=== PATIENT | female | born 1935 | race Caucasian/White ===

== ENCOUNTER 2020-04-10 05:41 | Inpatient (IN) ==
--- NOTE | 2020-04-10 06:05 | ERNOTE ---
Lower Extremity HPI - General Lower Extremities Pain: hip: right - fracture Time Seen by Provider: 04/10/20 05:41 Source: EMS, halfway records, other - outside hospital report Exam Limitations: no limitations - Immun/Allergies/Home Medications Immunizations: IMMUNIZATION HX Immunizations Up to Date Yes Immunizations Comment UTD per [facility] Allergies/Adverse Reactions: Allergies Allergy/AdvReac Type Severity Reaction Status Date / Time Penicillins Allergy Verified 04/10/20 06:04 - History of Present Illness Narrative: Patient accepted here in transfer from [facility] by Dr. Huston. I milton e with Dr. Alfonso in the ER in [place]. Patient resides in a halfway was up to use the bathroom and fell striking her right hip and sustaining a fracture. Patient has dementia, COPD and hypertension Occurred: this morning Location of Incident: home - longterm Method of Injury: Reports: fell Reason for Fall: Reports: tripped Loss of Consciousness: Reports: no loss of consciousness Associated Symptoms: Reports: unable to bear weight Other Injuries: Reports: none Subsequent Symptoms: Denies: sensory loss, numbness Review of Systems - Narrative Narrative: ROS may be unreliable due to patient's dementia. - Review of Systems Constitutional: Absent: recent illness Respiratory: Absent: shortness of breath Cardiology: Absent: chest pain Musculoskeletal: Present: See HPI, joint pain Neurological: Absent: headache, dizziness/light-headedness Medical History (Last Reviewed 04/10/20 @ 06:12 by Julius Dudley DO) Chronic obstructive pulmonary disease, unspecified Hypothyroidism Other secondary hypertension Unspecified abnormalities of gait and mobility Unspecified dementia with behavioral disturbance Unspecified open-angle glaucoma, stage unspecified Unsteadiness on feet Visual hallucination Physical Exam - Physical Exam General Appearance: Present: wd/wn, alert, no apparent distress Head Exam: Present: no tenderness w palpation, contusions - Aged bruise over right eye. Absent: lacerations Eye Exam: Normal inspection: bilateral Ears, Nose, Throat: Present: normal ENT inspection Neck: Present: normal inspection, nontender, supple Respiratory: Present: no respiratory distress, normal breath sounds, chest nontender, lungs clear Cardiovascular/Chest: Present: regular rate, rhythm, no murmur Peripheral Pulses: N=norm/S=strong/W=weak/B=bound/A=absent: Dorsalis-pedis (R): Normal, Dorsalis-pedis (L): Normal Gastrointestinal/Abdominal: Present: normal bowel sounds, nontender, no ndistended, soft Extremity Exam: Present: normal except - - Tenderness to right hip., normal range of motion - Of other 3 extremities Neurological Exam: Present: alert - Confused per her dementia, no motor/sensory deficits Skin Exam: Present: warm/dry Lymphatic Exam: Present: no adenopathy Progress - Results and Orders Patient's Lab Results:: I have reviewed the patient's lab results. - From [facility] no significant abnormalities. - Vital Signs Patient's Vital Signs:: I have reviewed the patient's vital signs. Vital Signs: Vital Signs 04/10/20 05:46 04/10/20 05:55 Temperature 36.3 C Pulse Rate 75 72 Respiratory Rate 18 Blood Pressure 176/89 H O2 Sat by Pulse Oximetry 94 - X-Ray X-Ray #1 X-Ray: hip Interpretation: Reviewed by me X-ray Comments: I reviewed the x-rays from [facility] which showed a minimally displaced right hip fracture. - Progress/Reassessment Chief Complaint: Hip Pain/Injury Progress Note-Subjective: 04/10/20 06:[address] Smith and he requests admission to medicine and consult him. I spoke with Dr. Ludwig she agrees with admission and the patient could go to surgery today. Departure Clinical Impression: Closed right hip fracture Qualifiers: Encounter type: initial encounter Qualified Code(s): S72.001A - Fracture of unspecified part of neck of right femur, initial encounter for closed fracture - Departure Disposition: Still a patient Condition: Good
[2020-04-10] MEDS ORDERED: ONDANSETRON HCL/PF 2 MG/ML VIAL IV ONE (06:43)
[2020-04-10] MEDS ORDERED: MORPHINE SULFATE 2 MG/ML DISP.SYRIN IV ONE (06:43)
[2020-04-10] MEDS ORDERED: ACETAMINOPHEN 325 MG TABLET PO PRN ×2 (09:34→09:35)
[2020-04-10] MEDS ORDERED: HYDROcodone/ACETAMINOPHEN 1 EACH TABLET PO PRN (09:35)
[2020-04-10] MEDS ORDERED: amLODIPine BESYLATE 5 MG TABLET PO ONE (09:37)
[2020-04-10] MEDS ORDERED: NORMAL SALINE 1,000 ML IV ONE (09:40)
[2020-04-10] MEDS ORDERED: QUEtiapine FUMARATE 25 MG TABLET PO SCH (09:45)
[2020-04-10] MEDS ORDERED: LEVOTHYROXINE SODIUM 88 MCG TABLET PO SCH (09:45)
[2020-04-10] MEDS ORDERED: MORPHINE SULFATE 4 MG/ML SYRG IV PRN ×2 (09:50→17:14)
--- NOTE | 2020-04-10 09:57 | HP ---
Chief Complaint - Chief Complaint Date of Service: 04/10/20 Time of Service: 09:45 Chief Complaint: I have right hip pain from a fall History of Present Illness: 85-year-old female with past medical history of hypertension, Willie Bonnet syndrome, dementia, open angle glaucoma, and COPD was brought to the ER from [facility] for a right hip fracture that the patient sustained when she fell last night while attempting to go to the bathroom. Patient is a snf resident who normally ambulates unassisted it is not clear how she fell but she was discovered on the floor laying on her right side. Patient suffers from dementia and has obvious cognitive deficits so it is difficult to get a clear history of how the fall occurred. The patient underwent labs and evaluation in the ER [facility] and results were sent to our facility and they show adequate hemoglobin levels and balance electrolytes and were negative for any other concerns. 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, unspecified Hypothyroidism Other secondary hypertension Unspecified abnormalities of gait and mobility Unspecified dementia with behavioral disturbance Unspecified open-angle glaucoma, stage unspecified Unsteadiness on feet Visual hallucination Surgical History: Surgical History (Last Reviewed 04/10/20 @ 08:21 by Ravi Garcia RN) Arthropathy of left hip Peds Patient Hx - Developmental: No Pertinent Hx Peds Patient Hx - Medical: No Pertinent Hx Peds Patient Hx - Cardiac/Respiratory: No Pertinent Hx Peds Patient Hx - Surgical: No Surgical History Patient History - Cancer: No Hx of Cancer Review Of Systems (GEN) - Review of Systems Generalized/Overall Review: Present: No Symptoms Reported EENTM: Present: No Symptoms Reported Respiratory: Present: No Symptoms Reported Cardiac: Present: No Symptoms Reported Abdominal: Present: No Symptoms Reported Genitourinary: Present: No Symptoms Reported Musculoskeletal: Present: Joint Pain - Right hip pain Neurological: Present: Pre-existing Deficit Skin: Present: No Symptoms Reported Endocrine: Present: No Symptoms Reported Immunizations: IMMUNIZATION HX Immunizations Up to Date Yes Immunizations Comment UTD per [facility] Allergies/Adverse Reactions: Allergies Allergy/AdvReac Type Severity Reaction Status Date / Time Penicillins Allergy Verified 04/10/20 08:21 Home Medications: HOME MEDICATIONS Acetaminophen [Tylenol] 650 mg PO Q4H PRN 04/10/20 [Last Taken Unknown] Donepezil HCl [Aricept] 10 mg PO HS 04/10/20 [Last Taken Unknown] Dorzolamide HCl/Timolol Maleat [Cosopt Eye Drops] 1 drop EACHEYE BID 04/10/20 [Last Taken Unknown] Fluticasone/Salmeterol [Advair Hfa 45-21 Mcg Inhaler] 2 puff INHALATION BID 04/10/20 [Last Taken Unknown] HYDROcodone/ACETAMINOPHEN [Hydrocodon-Acetaminophen 5-325] 1 ea PO Q4H PRN 04/10/20 [Last Taken Unknown] Levothyroxine Sodium [Synthroid] 88 mcg PO DAILY 04/10/20 [Last Taken Unknown] Loperamide HCl [Imodium A-D] 2 mg PO Q8H PRN 04/10/20 [Last Taken Unknown] QUEtiapine FUMARATE [Seroquel] 25 mg PO MOTUWETHFRSA 04/10/20 [Last Taken Unknown] Thiamine HCl [B-1] 100 mg PO DAILY 04/10/20 [Last Taken Unknown] Exam - Exam Vital Signs: Vital Signs - Last Taken Temp 37.2 C 04/10/20 08:10 Pulse 78 04/10/20 08:10 Resp 20 04/10/20 08:10 BP 176/87 H 04/10/20 08:10 Pulse Ox 92 L 04/10/20 08:10 Constitutional: Present: Alert, Cooperative, Well developed, Well nourished, No distress, Elderly Eye Exam: bilateral eye: normal inspection, PERRL, EOMI Neck: Present: non-tender, full range of motion, supple, normal inspection, trachea midline Back Exam: Present: normal inspection, no CVA tenderness, no vertebral tenderness Breasts: Present: Exam deferred Respiratory: Present: chest non-tender, lungs clear, normal breath sounds, no respiratory distress, no accessory muscle use Cardiovascular/Chest: Present: normal peripheral pulses, regular rate, rhythm, no chest tenderness, no edema, no gallop, no murmur, no rub Peripheral Pulses: carotid (R): 3+, carotid (L): 3+, femoral (R): 3+, femoral (L): 3+, dorsalis-pedis (R): 3+, dorsalis-pedis (L): 3+ Abdomen: Present: Normal bowel sounds, soft, nontender, nondistended, no rebound tenderness, no hepatospenomegaly, no masses /Rectal: Present: Exam deferred Extremity: Present: no pedal edema, no calf tenderness, normal capillary refill, other - Right lower extremity externally rotated and shortened, pulses and sensation are intact Skin Exam: Present: normal color, warm/dry, no cyanosis Lymphatic: Present: no adenopathy Neurologic: Present: exhibit specialist II-XII nml as tested, no motor/sensory deficits, alert, disoriented x 3 Appearance: Present: appropriate appearance, neat, impaired recent memory, impaired remote memory Eye contact: Present: cooperative, good eye contact, normal speech Thoughts: Present: no apparent hallucination, incoherent Assessment/Plan - Narrative Narrative: After evaluating the patient and reviewing the records she was cleared for her surgery. We will follow-up after the procedure. - Assessment/Plan (1) Closed right hip fracture Problem: Acute Qualifiers: Encounter type: initial encounter Qualified Code(s): S72.001A - Fracture of unspecified part of neck of right femur, initial encounter for closed fracture (2) HTN (hypertension) Problem: Chronic (3) Dementia Problem: Chronic
--- NOTE | 2020-04-10 11:33 | CONS ---
- Reason for consultation (1) Closed right hip fracture Date of Service: 04/10/20 HPI - General Date of Service: 04/10/20 Narrative: She has significant dementia was reportedly walking last night at her care facility when she fell. It is reported that patient suffers from significant sundowning per her family. This caused the patient to get up and walk in a high risk for fall. Patient otherwise has significant mental impairment and is a poor historian. She is otherwise mostly healthy, she reports her pain at 2/10. Worse with movement better with rest. Source: patient, RN/MD - History of Present Illness Allergies/Adverse Reactions: Allergies Penicillins Allergy (Verified 04/10/20 08:21) Home Medications: Home Medications Medication Instructions Recorded Last Taken Acetaminophen [Tylenol] 650 mg PO Q4H PRN 04/10/20 Unknown Donepezil HCl [Aricept] 10 mg PO HS 04/10/20 Unknown Dorzolamide HCl/Timolol Maleat 1 drop EACHEYE BID 04/10/20 Unknown [Cosopt Eye Drops] Fluticasone/Salmeterol [Advair Hfa 2 puff INHALATION BID 04/10/20 Unknown 45-21 Mcg Inhaler] HYDROcodone/ACETAMINOPHEN 1 ea PO Q4H PRN 04/10/20 Unknown [Hydrocodon-Acetaminophen 5-325] Levothyroxine Sodium [Synthroid] 88 mcg PO DAILY 04/10/20 Unknown Loperamide HCl [Imodium A-D] 2 mg PO Q8H PRN 04/10/20 Unknown QUEtiapine FUMARATE [Seroquel] 25 mg PO MOTUWETHFRSA 04/10/20 Unknown Thiamine HCl [B-1] 100 mg PO DAILY 04/10/20 Unknown Medications - Medications Current Medications: Current Medications Sodium Chloride (Sodium Chloride 0.9%) 1,000 mls @ 125 mls/hr IV .Q8H ONE Stop: 04/10/20 17:39 Last Admin: 04/10/20 10:09 Dose: 125 mls/hr Documented by: Morphine Sulfate (Morphine Sulfate) 1 mg IV Q2H PRN PRN Reason: Severe Pain (pain scale 7-10) Stop: 05/10/20 09:51 Last Admin: 04/10/20 10:10 Dose: 1 mg Documented by: Physical Examination - Exam Vital Signs: Vital Signs - Last Taken Temp 37.2 C 04/10/20 08:10 Pulse 78 04/10/20 10:09 Resp 20 04/10/20 08:10 BP 176/87 H 04/10/20 10:09 Pulse Ox 93 04/10/20 10:54 O2 Oxygen Delivery Method Nasal Cannula Constitutional: Present: No distress Extremity: Present: other - RLE--> sensation intact light touch, 5/5 plantarflexion/dorsiflexion ankle, no obvious wounds or deformity, distal capillary refill, tenderness palpation of right hip - Assessments/Findings (1) Closed right hip fracture Problem: Acute Qualifiers: Encounter type: initial encounter Qualified Code(s): S72.001A - Fracture of unspecified part of neck of right femur, initial encounter for closed fracture Plan - Plan Plan: -85 y/o female presents status post a fall, significant mental impairment and dementia as well as hallucinations. Discussed with patient's daughter proceeding with conservative or surgical intervention as well as indications and risk first benefits including not limited to continued pain, infection, bleeding, malunion versus nonunion fracture healing, inherent risk of surgery, cardiac and stroke risk, DVT risk. POA patient's daughter expressed understanding wish to proceed with surgical intervention. Plan for Dr. Rashid to proceed with cephalo-medullary nailing of right intertrochanteric femur fracture on 04/10/2020. Consent is been obtained all questions were answered. Patient will continue the hospital for monitoring postoperatively. Medicine provider is seen patient and agrees to proceed with surgical intervention.
[2020-04-10] MEDS: ALBUTEROL SULFATE/IPRATROPIUM 3 ML NEBU IH SCH ×2 (12:30→18:05)
[2020-04-10] MEDS ORDERED: MORPHINE SULFATE 2 MG/ML DISP.SYRIN IV PRN (13:30)
[2020-04-10] MEDS: RINGER'S SOLUTION,LACTATED 1,000 ML IV PRN ×3 (15:15→18:57)
[2020-04-10] MEDS ORDERED: PROPOFOL VIAL IV ONE (15:26)
[2020-04-10] MEDS ORDERED: NORMAL SALINE 20 ML VIAL ONE (15:26)
[2020-04-10] MEDS ORDERED: BUPIVACAINE HCL/PF 10 ML VIAL ONE (15:26)
--- NOTE | 2020-04-10 15:29 | ANES ---
Anesthesia Pre Procedure Eval Vitals/Labs: Last Vital Signs Temp 36.9 C 04/10/20 13:21 Pulse 79 04/10/20 13:21 Resp 18 04/10/20 13:21 BP 164/90 H 04/10/20 13:21 Pulse Ox 93 04/10/20 13:21 HOME MEDICATIONS Acetaminophen [Tylenol] 650 mg PO Q4H PRN 04/10/20 [Last Taken Unknown] Donepezil HCl [Aricept] 10 mg PO HS 04/10/20 [Last Taken Unknown] Dorzolamide HCl/Timolol Maleat [Cosopt Eye Drops] 1 drop EACHEYE BID 04/10/20 [Last Taken Unknown] Fluticasone/Salmeterol [Advair Hfa 45-21 Mcg Inhaler] 2 puff INHALATION BID 04/10/20 [Last Taken Unknown] HYDROcodone/ACETAMINOPHEN [Hydrocodon-Acetaminophen 5-325] 1 ea PO Q4H PRN 04/10/20 [Last Taken Unknown] Levothyroxine Sodium [Synthroid] 88 mcg PO DAILY 04/10/20 [Last Taken Unknown] Loperamide HCl [Imodium A-D] 2 mg PO Q8H PRN 04/10/20 [Last Taken Unknown] QUEtiapine FUMARATE [Seroquel] 25 mg PO MOTUWETHFRSA 04/10/20 [Last Taken Unknown] Thiamine HCl [B-1] 100 mg PO DAILY 04/10/20 [Last Taken Unknown] Allergies/Adverse Reactions: Allergies Allergy/AdvReac Type Severity Reaction Status Date / Time Penicillins Allergy Verified 04/10/20 08:21 - Planned Procedure Planned Procedure: R HIP FX Medication List Reviewed:: Yes Allergies Verified: Yes Medical History (Last Reviewed 04/10/20 @ 15:28 by Joe Taylor CRNA) Willie Bonnet syndrome Chronic obstructive pulmonary disease, unspecified Hypothyroidism Other secondary hypertension Unspecified abnormalities of gait and mobility Unspecified dementia with behavioral disturbance Unspecified open-angle glaucoma, stage unspecified Unsteadiness on feet Visual hallucination Surgical History (Last Reviewed 04/10/20 @ 15:28 by Joe Taylor CRNA) Arthropathy of left hip - Family Anesthesia History Family History:: no untoward family reactions to anesthesia - Airway/Neck/Teeth Within Normal Limits:: Yes Teeth Condition: intact Neck Exam: full range of motion Mallampatti Score: 2 Thyromental (T-M) distance: > 6 cm Mandibulo Hyoid distance: > 3 cm - Respiratory Respiratory History: COPD Respiratory Physical: lungs clear Smoking Status: Never smoker Sleep Apnea currently treated: No Sleep Apnea by current assessment: No - Cardiovascular Cardiac History: hypertension Tolerate Activity: Poor Heart Sounds: S1 & S2, Regular - Gastrointestinal NPO since: 0800 - Anesthesia Assessment and Plan ASA Class: PS, III Anesthesia Type Plan: Spinal Planned difficult intubation/equipment available: No
[2020-04-10] MEDS ORDERED: MAGNESIUM HYDROXIDE 30 ML UDC PO PRN (17:14)
[2020-04-10] MEDS ORDERED: MAG HYDROX/ALUMINUM HYD/SIMETH 30 ML UDC PO PRN (17:14)
--- NOTE | 2020-04-10 17:14 | OR ---
Operative Report - Dictated Report Narrative: Date: 04/10/2020 Surgeon: Albaro Rashid M.D. Outbound Sales Representative: Harlan Ding PA-C (provided an essential set of skilled educated handset assisted with transfer, positioning, prepping, draping, placement of instruments, insertion of implants, irrigation, closure wounds, and placement of dressings all which could not be performed by the available surgical crew) Preoperative diagnosis: Closed right intertrochanteric femur fracture Postoperative diagnosis: Closed right intertrochanteric femur fracture Operations and procedures: 1. Closed reduction, cephalo-medullary fixation closed right intertrochanteric femur fracture 2. Intraoperative interpretation of radiographs Anesthesia: Spinal Specimens: None Estimated blood loss: 50 Milliliters Retained implants: [employer] Trigen InterTAN 130 degree size 11.5 mm by 18 centimeter nail with 95 millimeter lag screw and 90 millimeter compression screw, with distal locking screw Complications: None Indications for procedure: Mrs. No is an 85-year-old female who had a ground-level fall who injured the right leg after ground-level fall. They were admitted to the hospital after being evaluated in the emergency department. Once the medical provider felt that they were stable for surgical treatment, the risks and benefits alternatives were discussed. The risks of , blood clots, bleeding, infection, nerve/tendon/blood vessel injury, malunion, nonunion, failure of implants, painful implants, arthrosis, and need for additional procedures were discussed. The extremity was marked and consent was obtained on the floor. Procedure: After marking the operative extremity on the floor, the patient was taken to the operating room. A timeout was performed. IV antibiotics consisting of Ancef were administered. A spinal anesthetic was induced by anesthesia, and the patient was then placed onto a fracture table with a well-padded perineal post. The nonoperative leg was placed in a well-padded traction boot in slight extension without any traction with an SCD on the leg. The operative leg was placed in a well-padded traction boot. Longitudinal traction, internal rotation, and flexion were utilized in order to reduce the fracture. Preliminary images were attained utilizing C-arm in both the AP and lateral views. This confirmed that we had obtained adequate visualization of the fracture as well as reduction. Next the hip was then prepped and draped in a standard sterile fashion. Next the guidewire was placed percutaneously proximal to the greater trochanter to rosey a starting point at the tip of the greater trochanter centered on the lateral view. This was passed down to the level below the lesser trochanter. A scalpel was utilized in order to dissect down to the greater trochanter in order to place the soft tissue protector down to bone. The entry drill was then placed down the proximal femur to the level of the lesser trochanter. The proper size nail was then selected and impacted into place. The outrigger was utilized in order to confirm the appropriate depth of the nail. Using the alignment device on the outrigger, an incision was made over the lateral femur. Sharp dissection was carried through the iliotibial band down to the proximal femur. The guidewire was placed into the femoral head in a center- center position on AP and lateral views. The tip-apex distance of less than 25 mm combined was obtained. Once we felt that we had placed a guidewire in the a ppropriate position, it was measured. Next the compression screw site was drilled through the lateral femoral cortex. This was then drilled down to the appropriate depth, again confirming that we are within the confines the bone. The derotational bar was then placed and the lag screw was drilled. The lag screw was then secured in place seating fully ensuring that we were within the confines of the bone. The compression screw was then inserted allowing for compression while releasing the traction on the leg. Using C-arm this was visualized to allow for compression across the fracture site. Once is felt that we had adequately stabilized the intertrochanteric fracture, the distal interlocking screw was placed in a dynamic position. It was confirmed to be the appropriate length and within the nail on both AP and lateral views. The nail was secured allowing for controlled compression and the outrigger was removed. The wounds were then thoroughly irrigated. Final images were obtai kristina. The hip was placed through range of motion and showed no crepitance. The deep fascia was closed with 0 Vicryl, the subcutaneous tissue with 3-0 Vicryl, and the skin was closed with michael. Sterile dressings of Xeroform, 4 x 4, and tape were applied. All sponge, sharp, and instrument counts were correct prior to closing the wounds. The patient was then awoken and transferred to the posta nesthesia care unit in stable condition.
--- NOTE | 2020-04-10 17:40 | ANES ---
Post Anesthesia Discharge - Transfer of Care Transfer of Care handoff given to nurse: Yes - Discharge from PACU Discharge from PACU when meets criteria: Yes
--- NOTE | 2020-04-10 17:40 | ANES ---
Post Anesthesia Assessment - Vital Signs Vitals: Last Vital Signs Temp 36.9 C 04/10/20 13:21 Pulse 79 04/10/20 13:21 Resp 18 04/10/20 13:21 BP 164/90 H 04/10/20 13:21 Pulse Ox 93 04/10/20 13:21 Airway Patency: Normal - Mental Status Level Of Consciousness: Awake - Pain Level Pain Score: 0 - N/V Assessment Nausea/Vomiting Presence: None Dehydration:: No
[2020-04-10] MEDS: ACETAMINOPHEN 500 MG TABLET PO PRN (19:38)
[2020-04-10] MEDS: WARFARIN SODIUM 5 MG TABLET PO SCH (19:39)
[2020-04-10] MEDS: ceFAZolin SODIUM 1 GM in DEXTROSE 5 % IN WATER 100 ML IV SCH ×2 (19:54)
[2020-04-10] MEDS: TIMOLOL MALEATE/DORZOLAM HCL 100 DROP BTL EACHEYE SCH (20:25)
[2020-04-10] MEDS: QUEtiapine FUMARATE 25 MG TABLET PO SCH (20:30)
[2020-04-10] MEDS: PANTOPRAZOLE SODIUM 40 MG TABLET.EC PO SCH (20:30)
[2020-04-10] MEDS: SENNOSIDES/DOCUSATE SODIUM 1 TAB TABLET PO SCH (20:30)
[2020-04-10] MEDS: DONEPEZIL HCL 10 MG TABLET PO SCH (20:30)
[2020-04-11] MEDS: ceFAZolin SODIUM 1 GM in DEXTROSE 5 % IN WATER 100 ML IV SCH ×4 (01:24→07:25)
[2020-04-11] MEDS: RINGER'S SOLUTION,LACTATED 1,000 ML IV PRN (03:41)
[2020-04-11] MEDS: ACETAMINOPHEN 500 MG TABLET PO PRN ×3 (03:46→23:02)
[2020-04-11] MEDS ORDERED: ceFAZolin SODIUM 1 GM VIAL IV PRN (06:00)
[2020-04-11] MEDS: ALBUTEROL SULFATE/IPRATROPIUM 3 ML NEBU IH SCH ×2 (06:09→18:14)
[2020-04-11 06:33] LABS: Anion Gap 7.7 mmol/L (6.8-13.8); BUN/Creatinine Ratio 22.6 (9.0-21.6); Calcium * 7.7 mg/dL (7.9-10.9); Estimated Creat Clear 45.8; Potassium 3.7 mmol/L (3.4-4.6)
[2020-04-11 06:35] LABS: Hematocrit 33.7 % (37.0-47.0); Mean Cell Volume 101.2 fl (78-100); Mean Corpuscular Hgb Conc 32.6 g/dl (32-36); Mean Platelet Volume 10.2 fl (8-12.5); Platelet Count 192 K/mm3 (150-450); Red Blood Count 3.33 M/mm3 (4.2-5.4); Red Cell Distribution Width 13.3 % (11.5-14.0); White Blood Count 8.6 K/mm3 (4.0-10.5)
[2020-04-11 06:49] LABS: Prothrombin Time (Patient) 11.6 Seconds (9.1-10.7)
[2020-04-11 07:05] LABS: INR 1.18 INR (0.92-1.08)
[2020-04-11] MEDS: DOCUSATE SODIUM 100 MG CAPSULE PO SCH ×2 (07:45→08:37)
[2020-04-11] MEDS: LEVOTHYROXINE SODIUM 88 MCG TABLET PO SCH (07:45)
[2020-04-11] MEDS: THIAMINE HCL 100 MG TABLET PO SCH ×2 (07:45→08:38)
[2020-04-11] MEDS: PANTOPRAZOLE SODIUM 40 MG TABLET.EC PO SCH ×2 (07:45→20:47)
--- NOTE | 2020-04-11 07:49 | PN ---
Subjective - Date and Time Seen Date: 04/11/20 Time: 07:46 Subjective Narrative: Subjective: Reports no concerns although she is confused chronically she is resting in bed. Pain is well-controlled. Physical exam: Alert and not oriented to person, place and time Right lower extremity: Palpable dorsalis pedis pulse. Sensation grossly intact to light touch. Dressings clean and dry. Able to flex and extend ankle and toes. No excessive drainage. Calf and thigh are soft. Assessment: Postop day 1 status post right hip cephalo-medullary nail fixation for intertrochanteric femur fracture. Plan: Continue with physical and occupational therapy weightbearing as tolerated. Continue with anticoagulation-she will need 6 weeks of DVT prophylaxis. 24 hours postoperative prophylactic antibiotics. Pain control with goal to rely on oral medications. Continue bowel regimen. Will need 6 weeks with walker or assitive device to protect joint while ambulating during the recovery process. Discharge planning -she is okay for transfer to nursing facility once medically stable. Discontinue Proctor catheter. Objective - Vitals Vitals: Last Vital Signs Temp 36.2 C 04/11/20 03:38 Pulse 70 04/11/20 06:15 Resp 18 04/11/20 06:15 BP 137/74 04/11/20 05:51 Pulse Ox 98 04/11/20 06:09 - Abnormal Lab Findings Abnormal Lab Findings: Abnormal Lab Results 04/11/20 04/11/20 04/11/20 Range/Units 06:24 06:24 06:24 RBC 3.33 L (4.2-5.4) M/mm3 Hgb 11.0 L (12.5-16.0) gm/dL Hct 33.7 L (37.0-47.0) % MCV 101.2 H (78-100) fl MCH 33.0 H (27-31) pg PT 11.6 H (9.1-10.7) Seconds INR (Anticoag Therapy) 1.18 H (0.92-1.08) INR Chloride 107 H (97-106) mmol/L BUN/Creatinine Ratio 22.6 H (9.0-21.6) Calcium 7.7 L (7.9-10.9) mg/dL Cauti Physician Documentation - Urinary Catheter Management Urethral (Proctor) Date of Insertion: 04/10/20 Time of Insertion: 06:27 Assessment/Plan - Problems/Diagnosis (1) Closed right hip fracture Problem: Acute Qualifiers: Encounter type: subsequent encounter Fracture healing: with routine healing Qualified Code(s): S72.001D - Fracture of unspecified part of neck of right femur, subsequent encounter for closed fracture with routine healing
--- NOTE | 2020-04-11 10:21 | PN ---
Subjective - Date and Time Seen Date: 04/11/20 Time: 10:07 Subjective Narrative: Patient has dementia and is disoriented Objective Objective Narrative: 85-year-old female status post right hip closed reduction cephalo- medullary nail fixation postop day 1 was evaluated at bedside was found to be afebrile and in no acute distress. Patient tolerated the procedure without any adverse events. At the moment she appears to be comfortable but has her usual cognitive deficits, therefore questioning during this morning was not very fruitful. She was evaluated by the orthopedic surgeon this morning who reports a routine postop progress and ordered for the patient to start occupational and physical therapy. He also allowed full weightbearing. Patient was also started on Coumadin for postop DVT prophylaxis and will be followed by daily INRs. Labs this morning demonstrated only mild postop anemia so we will just monitor this for now. Repeat CBC was ordered to be done in 2 days. Patient will stay in the hospital throughout the weekend and we will work on discharging back to her care home for rehab. In the meantime COVID-19 screening has been ordered before we can return the patient to the care home. - Review of Systems Generalized/Overall Review: Reports: No Symptoms Reported EENTM: Reports: No Symptoms Reported Respiratory: Reports: No Symptoms Reported Cardiac: Reports: No Symptoms Reported Abdominal: Reports: No Symptoms Reported Genitourinary Symptoms: Reports: No Symptoms Reported Musculoskeletal Complaints: Reports: Joint Pain Neurological: Reports: No Symptoms Reported Skin: Reports: No Symptoms Reported Endocrine: Reports: No Symptoms Reported - Vitals Vitals: Last Vital Signs Temp 37.1 C 04/11/20 07:38 Pulse 70 04/11/20 07:38 Resp 18 04/11/20 07:38 BP 143/81 04/11/20 07:38 Pulse Ox 96 04/11/20 08:38 - Abnormal Lab Findings Abnormal Lab Findings: Abnormal Lab Results 04/11/20 04/11/20 04/11/20 Range/Units 06:24 06:24 06:24 RBC 3.33 L (4.2-5.4) M/mm3 Hgb 11.0 L (12.5-16.0) gm/dL Hct 33.7 L (37.0-47.0) % MCV 101.2 H (78-100) fl MCH 33.0 H (27-31) pg PT 11.6 H (9.1-10.7) Seconds INR (Anticoag Therapy) 1.18 H (0.92-1.08) INR Chloride 107 H (97-106) mmol/L BUN/Creatinine Ratio 22.6 H (9.0-21.6) Calcium 7.7 L (7.9-10.9) mg/dL - Exam Constitutional: Present: Alert, Cooperative, Well developed, Well nourished, No distress, Elderly ENT Exam: Present: normal ENT inspection, hearing grossly normal, moist mucous membranes Neck: Present: non-tender, full range of motion, supple, normal inspection, trachea midline Breasts: Present: Exam deferred Respiratory: Present: chest non-tender, lungs clear, normal breath sounds, no respiratory distress, no accessory muscle use Cardiovascular/Chest: Present: normal peripheral pulses, regular rate, rhythm, no chest tenderness, no edema, no gallop, no JVD, no murmur, no rub Abdomen: Present: Normal bowel sounds, soft, nontender, nondistended, no rebound tenderness, no hepatospenomegaly, no masses /Rectal: Present: Exam deferred Extremity: Present: no pedal edema, no calf tenderness, normal capillary refill, pelvis stable, other - Right hip covered by dry clean bandage there is no signs of infection or bleeding. Skin Exam: Present: normal color, warm/dry, no cyanosis Lymphatic: Present: no adenopathy Neurologic: Present: normal mood/affect, disoriented x 3 Appearance: Present: appropriate appearance Eye contact: Present: cooperative, good eye contact Thoughts: Present: no apparent hallucination Cauti Physician Documentation - Urinary Catheter Management Urethral (Proctor) Urethral Indwelling: No Date of Insertion: 04/10/20 Time of Insertion: 06:27 Date of Removal: 04/11/20 Time of Removal: 10:00 Assessment/Plan Plan Narrative: Follow-up CBC has been ordered to evaluate postop hemoglobin levels and WBCs. In the meantime patient will undergo an hospital OT and PT and will start working on discharging back to the facility hopefully sometime next week. - Problems/Diagnosis (1) Closed right hip fracture Problem: Resolved Qualifiers: Encounter type: subsequent encounter Fracture healing: with routine healing Qualified Code(s): S72.001D - Fracture of unspecified part of neck of right femur, subsequent encounter for closed fracture with routine healing (2) HTN (hypertension) Problem: Chronic (3) Dementia Problem: Chronic (4) Status post-operative repair of hip fracture Problem: Acute (5) correction resident Problem: Chronic
[2020-04-11] MEDS: TIMOLOL MALEATE/DORZOLAM HCL 100 DROP BTL EACHEYE SCH ×2 (14:10→20:48)
[2020-04-11] MEDS: WARFARIN SODIUM 5 MG TABLET PO SCH (17:51)
[2020-04-11] MEDS: SENNOSIDES/DOCUSATE SODIUM 1 TAB TABLET PO SCH (20:47)
[2020-04-11] MEDS: QUEtiapine FUMARATE 25 MG TABLET PO SCH (20:47)
[2020-04-11] MEDS: DONEPEZIL HCL 10 MG TABLET PO SCH (20:47)
[2020-04-12] MEDS: ALBUTEROL SULFATE/IPRATROPIUM 3 ML NEBU IH SCH ×3 (06:01→18:10)
[2020-04-12] MEDS: PANTOPRAZOLE SODIUM 40 MG TABLET.EC PO SCH ×2 (06:56→20:06)
[2020-04-12] MEDS: LEVOTHYROXINE SODIUM 88 MCG TABLET PO SCH (06:56)
[2020-04-12 07:22] LABS: Prothrombin Time (Patient) 14.6 Seconds (9.1-10.7)
[2020-04-12 07:23] LABS: INR 1.5 INR (0.92-1.08)
[2020-04-12] MEDS: THIAMINE HCL 100 MG TABLET PO SCH (08:44)
[2020-04-12] MEDS: TIMOLOL MALEATE/DORZOLAM HCL 100 DROP BTL EACHEYE SCH ×2 (08:44→20:05)
[2020-04-12] MEDS: DOCUSATE SODIUM 100 MG CAPSULE PO SCH (08:44)
[2020-04-12] MEDS: ACETAMINOPHEN 500 MG TABLET PO PRN ×2 (11:23→18:32)
--- NOTE | 2020-04-12 13:27 | PN ---
Subjective - Date and Time Seen Date: 04/12/20 Time: 13:26 Subjective Narrative: Patient resting comfortably in her chair when I entered the room, but she became slightly agitated as we started to talk. Patient alert and oriented x1 currently, very tangential speech this morning. Patient slightly tearful but denies pain. Patient's vital signs are stable she is afebrile. No acute events overnight. Objective - Review of Systems Generalized/Overall Review: Denies: Chills, Fever EENTM: Reports: No Symptoms Reported Respiratory: Reports: No Symptoms Reported Cardiac: Denies: Chest Pain Abdominal: Denies: Vomiting, Abdominal Pain Musculoskeletal Complaints: Reports: Joint Pain - Vitals Vitals: Last Vital Signs Temp 37.7 C 04/12/20 12:00 Pulse 70 04/12/20 12:00 Resp 20 04/12/20 12:00 BP 140/82 04/12/20 12:00 Pulse Ox 92 L 04/12/20 12:00 - Abnormal Lab Findings Abnormal Lab Findings: Abnormal Lab Results 04/12/20 Range/Units 07:08 PT 14.6 H (9.1-10.7) Seconds INR (Anticoag Therapy) 1.50 H (0.92-1.08) INR - Exam Constitutional: Present: Alert, Mild distress, Elderly. Absent: Oriented x3 - x2 ENT Exam: Present: hard of hearing - Right Respiratory: Present: lungs clear, normal breath sounds Cardiovascular/Chest: Present: regular rate, rhythm, no murmur Abdomen: Present: Normal bowel sounds, soft, nontender Skin Exam: Present: normal color, warm/dry, other - Bandage over incision clean and dry Appearance: Present: appropriate appearance, impaired insight, impaired recent memory Thoughts: Present: no apparent hallucination Cauti Physician Documentation - Urinary Catheter Management Urethral (Proctor) Urethral Indwelling: No Date of Insertion: 04/10/20 Time of Insertion: 06:27 Date of Removal: 04/11/20 Time of Removal: 10:00 Assessment/Plan Plan Narrative: Postop day 2-status post right hip cephalo-medullary nail fixation for intertrochanteric femur fracture. Patient's vital signs are stable patient is afebrile. No acute events overnight. Pain appears to be well controlled Patient slightly agitated but easily distractible. Patient denies pain. Patient currently wanted to know who still her glasses. Repeat hemogram in the morning. Patient currently on Coumadin for anticoagulation. Repeat INR in the morning Patient's dementia appears to be stable per report Nurse will call questions or concerns. - Problems/Diagnosis (1) Closed right hip fracture Problem: Resolved Qualifiers: Encounter type: subsequent encounter Fracture healing: with routine healing Qualified Code(s): S72.001D - Fracture of unspecified part of neck of right femur, subsequent encounter for closed fracture with routine healing (2) Status post-operative repair of hip fracture Problem: Acute (3) Dementia Problem: Chronic (4) HTN (hypertension) Problem: Chronic
[2020-04-12] MEDS: WARFARIN SODIUM 5 MG TABLET PO SCH (17:03)
[2020-04-12] MEDS: SENNOSIDES/DOCUSATE SODIUM 1 TAB TABLET PO SCH (20:04)
[2020-04-12] MEDS: DONEPEZIL HCL 10 MG TABLET PO SCH (20:05)
[2020-04-12] MEDS: QUEtiapine FUMARATE 25 MG TABLET PO SCH (20:06)
[2020-04-13] MEDS: ACETAMINOPHEN 500 MG TABLET PO PRN ×3 (00:37→16:57)
[2020-04-13] MEDS: ALBUTEROL SULFATE/IPRATROPIUM 3 ML NEBU IH SCH ×2 (06:01→18:00)
[2020-04-13 06:41] LABS: Hematocrit 33.8 % (37.0-47.0); Hemoglobin 10.9 gm/dL (12.5-16.0); Mean Cell Volume 100.9 fl (78-100); Mean Corpuscular Hemoglobin 32.5 pg (27-31); Mean Corpuscular Hgb Conc 32.2 g/dl (32-36); Mean Platelet Volume 10.6 fl (8-12.5); Neutrophil % 64.5 % (42-75.0); Platelet Count 205 K/mm3 (150-450); Red Blood Count 3.35 M/mm3 (4.2-5.4); Red Cell Distribution Width 13.2 % (11.5-14.0); White Blood Count 9.4 K/mm3 (4.0-10.5)
[2020-04-13 06:51] LABS: Prothrombin Time (Patient) 28.1 Seconds (9.1-10.7)
[2020-04-13 06:53] LABS: INR 2.96 INR (0.92-1.08)
[2020-04-13] MEDS: LEVOTHYROXINE SODIUM 88 MCG TABLET PO SCH (07:02)
[2020-04-13] MEDS: PANTOPRAZOLE SODIUM 40 MG TABLET.EC PO SCH ×2 (07:02→20:06)
[2020-04-13] MEDS: DOCUSATE SODIUM 100 MG CAPSULE PO SCH (09:01)
[2020-04-13] MEDS: TIMOLOL MALEATE/DORZOLAM HCL 100 DROP BTL EACHEYE SCH ×2 (09:01→20:05)
[2020-04-13] MEDS: THIAMINE HCL 100 MG TABLET PO SCH (09:01)
--- NOTE | 2020-04-13 16:42 | PN ---
Subjective - Date and Time Seen Date: 04/13/20 Time: 12:41 Subjective Narrative: Patient slightly confused but pleasant today. Alert and oriented x2. Pain appears to be well controlled. Mood and affect stable, not as tearful today as she was yesterday. Hemogram stable today. INR in appropriate range but likely supratherapeutic tomorrow. Objective - Review of Systems Generalized/Overall Review: Denies: Chills, Fever EENTM: Reports: No Symptoms Reported Respiratory: Reports: No Symptoms Reported Cardiac: Reports: No Symptoms Reported Abdominal: Reports: No Symptoms Reported Musculoskeletal Complaints: Reports: Joint Pain, Back Pain Neurological: Reports: No Symptoms Reported Skin: Reports: No Symptoms Reported - Vitals Vitals: Last Vital Signs Temp 36.7 C 04/13/20 14:21 Pulse 69 04/13/20 14:21 Resp 21 H 04/13/20 14:21 BP 173/94 H 04/13/20 14:21 Pulse Ox 92 L 04/13/20 14:21 - Abnormal Lab Findings Abnormal Lab Findings: Abnormal Lab Results 04/13/20 04/13/20 Range/Units 06:30 06:30 RBC 3.35 L (4.2-5.4) M/mm3 Hgb 10.9 L (12.5-16.0) gm/dL Hct 33.8 L (37.0-47.0) % MCV 100.9 H (78-100) fl MCH 32.5 H (27-31) pg Immature Gran # (Auto) 0.04 H (0.000-0.0310) K/mm3 Lymphocytes % 12.2 L (20-51) % Monocytes % 15.0 H (0.0-9) % Eosinophils % 7.5 H (0.0-3.0) % Lymphocytes # 1.14 L (1.5-3.5) k/mm3 Monocytes # 1.4 H (0.0-1.0) k/mm3 PT 28.1 H (9.1-10.7) Seconds INR (Anticoag Therapy) 2.96 H (0.92-1.08) INR - Exam Constitutional: Present: Alert, Elderly. Absent: Oriented x3 - X2 ENT Exam: Present: hard of hearing Respiratory: Present: lungs clear, normal breath sounds Cardiovascular/Chest: Present: regular rate, rhythm, no murmur Abdomen: Present: Normal bowel sounds, soft, nontender, nondistended Extremity: Present: leg pain, other - Incision c/d/i Skin Exam: Present: normal color, warm/dry Appearance: Present: impaired insight Eye contact: Present: cooperative, good eye contact Thoughts: Present: visual hallucinations Cauti Physician Documentation - Urinary Catheter Management Urethral (Proctor) Urethral Indwelling: No Date of Insertion: 04/10/20 Time of Insertion: 06:27 Date of Removal: 04/11/20 Time of Removal: 10:00 Assessment/Plan Plan Narrative: Postop day 3: status post right hip cephalo-medullary nail fixation for intertrochanteric femur fracture. Patient's vital signs are stable patient is afebrile. No acute events overnight. Pain appears to be well controlled Patient slightly agitated but easily distractible. Patient denies pain. Slightly confused, appears to be sundowning just a little, sees a cat in her room. She is pleasant enough though, will monitor. Patient's dementia stable Patient currently on Coumadin for anticoagulation. INR likely to be supratherapeutic in the morning, will hold coumadin tomorrow. Nurse will call questions or concerns. - Problems/Diagnosis (1) Closed right hip fracture Problem: Resolved Qualifiers: Encounter type: subsequent encounter Fracture healing: with routine healing Qualified Code(s): S72.001D - Fracture of unspecified part of neck of right femur, subsequent encounter for closed fracture with routine healing (2) Status post-operative repair of hip fracture Problem: Acute (3) Dementia Problem: Chronic (4) HTN (hypertension) Problem: Chronic
[2020-04-13] MEDS: SENNOSIDES/DOCUSATE SODIUM 1 TAB TABLET PO SCH (20:05)
[2020-04-13] MEDS: DONEPEZIL HCL 10 MG TABLET PO SCH (20:06)
[2020-04-14] MEDS: ACETAMINOPHEN 500 MG TABLET PO PRN ×2 (00:09→08:09)
[2020-04-14] MEDS: ALBUTEROL SULFATE/IPRATROPIUM 3 ML NEBU IH SCH (05:59)
[2020-04-14 06:42] LABS: Prothrombin Time (Patient) 24.8 Seconds (9.1-10.7)
[2020-04-14 06:46] LABS: INR 2.6 INR (0.92-1.08)
[2020-04-14] MEDS: PANTOPRAZOLE SODIUM 40 MG TABLET.EC PO SCH (08:09)
[2020-04-14] MEDS: LEVOTHYROXINE SODIUM 88 MCG TABLET PO SCH (08:09)
[2020-04-14] MEDS: THIAMINE HCL 100 MG TABLET PO SCH (08:09)
[2020-04-14] MEDS: DOCUSATE SODIUM 100 MG CAPSULE PO SCH (08:09)
[2020-04-14] MEDS: TIMOLOL MALEATE/DORZOLAM HCL 100 DROP BTL EACHEYE SCH (08:10)
[2020-04-14] MEDS ORDERED: amLODIPine BESYLATE 5 MG TABLET PO ONE (09:04)
--- NOTE | 2020-04-14 09:11 | PN ---
Subjective - Date and Time Seen Date: 04/14/20 Time: 09:05 Subjective Narrative: Patient is emotional but appears comfortable. Objective Objective Narrative: 85-year-old female status post right hip closed reduction cephalo- medullary nail fixation postop day 4 was evaluated at bedside was found to be afebrile and in no acute distress. Patient patient appears physically comfortable but is emotionally distressed at the moment. She appears to be hallucinating and mildly agitated, turns out this is around the patient's baseline given her history of dementia. When asked she denies having pain but says she feels something in her skull, physical exam did not reveal any abnormalities in the patient's head. We will continue to monitor this closely. She was hypertensive this morning therefore she will be administered an antihypertensive p.o., IVF was also stopped. - Review of Systems Generalized/Overall Review: Reports: No Symptoms Reported EENTM: Reports: No Symptoms Reported Respiratory: Reports: No Symptoms Reported Cardiac: Reports: No Symptoms Reported Abdominal: Reports: No Symptoms Reported Genitourinary Symptoms: Reports: No Symptoms Reported Musculoskeletal Complaints: Reports: Joint Pain Neurological: Reports: Emotional Problems, Pre-existing Deficit Skin: Reports: No Symptoms Reported Endocrine: Reports: No Symptoms Reported - Vitals Vitals: Last Vital Signs Temp 36.7 C 04/14/20 06:24 Pulse 72 04/14/20 06:24 Resp 18 04/14/20 06:24 BP 160/85 H 04/14/20 06:24 Pulse Ox 96 04/14/20 06:24 - Abnormal Lab Findings Abnormal Lab Findings: Abnormal Lab Results 04/14/20 Range/Units 06:00 PT 24.8 H (9.1-10.7) Seconds INR (Anticoag Therapy) 2.60 H (0.92-1.08) INR - Exam Constitutional: Present: Alert, Cooperative, Well developed, Well nourished, No distress, Elderly ENT Exam: Present: normal ENT inspection, hearing grossly normal, pharynx normal, TMs normal Neck: Present: non-tender, full range of motion, supple, normal inspection, trachea midline Breasts: Present: Exam deferred Respiratory: Present: chest non-tender, lungs clear, normal breath sounds, no respiratory distress, no accessory muscle use Cardiovascular/Chest: Present: normal peripheral pulses, regular rate, rhythm, no chest tenderness, no edema, no gallop, no JVD, no murmur, no rub Abdomen: Present: Normal bowel sounds, soft, nontender, nondistended, no rebound tenderness, no hepatospenomegaly, no masses /Rectal: Present: Exam deferred Extremity: Present: normal inspection, no pedal edema, no calf tenderness, normal capillary refill, pelvis stable, other - Right hip covered by dry clean bandage Skin Exam: Present: normal color, warm/dry, no cyanosis Lymphatic: Present: no adenopathy Neurologic: Present: clinical systems analyst II-XII nml as tested, no motor/sensory deficits, alert, depressed affect, disoriented x 3 Appearance: Present: impaired recent memory, impaired remote memory Eye contact: Present: cooperative Thoughts: Present: delusions Cauti Physician Documentation - Urinary Catheter Management Urethral (Proctor) Urethral Indwelling: No Date of Insertion: 04/10/20 Time of Insertion: 06:27 Date of Removal: 04/11/20 Time of Removal: 10:00 Assessment/Plan Plan Narrative: Patient appears to be hallucinating and is a little distressed this morning however she is cooperative and pleasant. We will just continue monitoring this for now. Antihypertensive was ordered to address hypertension, will watch vitals closely. Discharge planning is underway so patient could be discharged to a rehab facility. - Problems/Diagnosis (1) Closed right hip fracture Problem: Resolved Qualifiers: Encounter type: subsequent encounter Fracture healing: with routine healing Qualified Code(s): S72.001D - Fracture of unspecified part of neck of right femur, subsequent encounter for closed fracture with routine healing (2) HTN (hypertension) Problem: Chronic (3) Dementia Problem: Chronic (4) Status post-operative repair of hip fracture Problem: Acute (5) correction resident Problem: Chronic
--- NOTE | 2020-04-14 09:46 | PN ---
Subjective - Date and Time Seen Date: 04/14/20 Time: 09:44 Subjective Narrative: Subjective: Reports no concerns. She has been more alert and mobility is improving. Pain is well-controlled. Physical exam: Alert and oriented to person, not place and time Right lower extremity: Palpable dorsalis pedis pulse. Sensation grossly intact to light touch. Dressings clean and dry. Able to flex and extend ankle and toes. No excessive drainage. Calf and thigh are soft. Assessment: Postop day 4 status post right hip cephalo-medullary nail fixation for intertrochanteric femur fracture. Plan: Continue with physical and occupational therapy weightbearing as tolerated. Continue with anticoagulation-she will need 6 weeks of DVT prophylaxis. Pain control with goal to rely on oral medications. Continue bowel regimen. Will need 6 weeks with walker or assitive device to protect joint while ambulating during the recovery process. Discharge planning -she is okay for transfer to nursing facility once medically stable. Keep wounds covered and dry, can change with gauze and tape every 3-4 days if tattered or soiled. Ice to hip. Continue PT. Follow-up in 2-3 weeks with ortho Objective - Vitals Vitals: Last Vital Signs Temp 36.7 C 04/14/20 09:19 Pulse 75 04/14/20 09:28 Resp 18 04/14/20 09:19 BP 158/88 H 04/14/20 09:28 Pulse Ox 95 04/14/20 09:19 - Abnormal Lab Findings Abnormal Lab Findings: Abnormal Lab Results 04/14/20 Range/Units 06:00 PT 24.8 H (9.1-10.7) Seconds INR (Anticoag Therapy) 2.60 H (0.92-1.08) INR Cauti Physician Documentation - Urinary Catheter Management Urethral (Proctor) Urethral Indwelling: No Date of Insertion: 04/10/20 Time of Insertion: 06:27 Date of Removal: 04/11/20 Time of Removal: 10:00 Assessment/Plan - Problems/Diagnosis (1) Closed right hip fracture Problem: Resolved Qualifiers: Encounter type: subsequent encounter Fracture healing: with routine healing Qualified Code(s): S72.001D - Fracture of unspecified part of neck of right femur, subsequent encounter for closed fracture with routine healing
--- NOTE | 2020-04-14 13:02 | DS ---
(1) Closed right hip fracture Problem: Resolved Qualifiers: Encounter type: subsequent encounter Fracture healing: with routine healing Qualified Code(s): S72.001D - Fracture of unspecified part of neck of right femur, subsequent encounter for closed fracture with routine healing (2) HTN (hypertension) Problem: Resolved (3) Dementia Problem: Chronic (4) Status post-operative repair of hip fracture Problem: Acute (5) penitentiary resident Problem: Chronic Date of Discharge:: 04/14/20 Hospital Course: 85-year-old female admitted for a right intratrochanteric femoral neck fracture that occurred due to a fall at the [facility] underwent a successful surgical repair of the fracture while here at [facility]. Patient tolerated the procedure without any issues and is doing well postoperatively. She maintained stable vitals and reports adequate control of her pain. Patient was ordered to undergo postop PT and OT which she has been tolerating without any issues and that she will continue while at the [facility] per orders by Ortho. She was cleared for discharge by the orthopedic surgeon and will return to [facility] with 6 weeks of anticoagulation for VTE prophylaxis. Patient is to follow-up with her PCP in the next several days. Procedures Performed: see notes below List Procedures: Right cephalo-medullary fixation of right intertrochanteric femoral neck fracture. Results and Findings: Lab Pending Results 04/11/20 06:24: WBC 8.6, RBC 3.33 L, Hgb 11.0 L, Hct 33.7 L, MCV 101.2 H, MCH 33.0 H, MCHC 32.6, RDW 13.3, Plt Count 192, MPV 10.2 04/11/20 06:24: Sodium 139, Plasma Sodium 139, Potassium 3.7, Chloride 107 H, Carbon Dioxide 28.0, Anion Gap 7.7, BUN 19, Creatinine 0.84, Est GFR (Non-Af Amer) 68, BUN/Creatinine Ratio 22.6 H, Random Glucose 88, Calcium 7.7 L 04/11/20 06:24: PT 11.6 H, INR (Anticoag Therapy) 1.18 H 04/11/20 11:00: SARS-CoV-2 (PCR) Not detected 04/12/20 07:08: PT 14.6 H, INR (Anticoag Therapy) 1.50 H 04/13/20 06:30: PT 28.1 H, INR (Anticoag Therapy) 2.96 H 04/13/20 06:30: WBC 9.4, RBC 3.35 L, Hgb 10.9 L, Hct 33.8 L, MCV 100.9 H, MCH 32.5 H, MCHC 32.2, RDW 13.2, Plt Count 205, MPV 10.6, Immature Gran % (Auto) 0.40, Immature Gran # (Auto) 0.04 H, Neutrophils % 64.5, Lymphocytes % 12.2 L, Monocytes % 15.0 H, Eosinophils % 7.5 H, Basophils % 0.4, Nucleated RBC % 0.0, Neutrophils # 6.0, Lymphocytes # 1.14 L, Monocytes # 1.4 H, Eosinophils # 0.7, Absolute Basophils 0.0 04/14/20 06:00: PT 24.8 H, INR (Anticoag Therapy) 2.60 H Discharge Location: [facility] Disposition: [facility] Condition: Good Face to Face Encounter completed per [facility] Guidelines: No Level of Care: SNF Discharge Activity: Weight bearing Discharge Diet: General/regular food Half-Way Therapy: Physical Therapy, Occupation Therapy Additional Patient Instructions (free text): [facility] at discharge, please call and fax discharge information to them. PT and OT to evaluate and treat. Follow up Orthopedic office appointment with Dr Rashid's office on April 24 at 10:00am. Ortho instructions: Continue with physical and occupational therapy weight bearing as tolerated. Continue with anticoagulation-she will need 6 weeks of DVT prophylaxis until . Continue bowel regimen. Will need 6 weeks with walker or assitive device to protect joint while ambulating during the recovery process. Keep wounds covered and dry, can change with gauze and tape every 3-4 days if tattered or soiled. Ice to hip. Prescriptions (Any new or edited meds): HYDROcodone/ACETAMINOPHEN [Hydrocodone-Acetamin 5-325 mg] 1 ea PO Q6H PRN 5 Days #20 PRN Reason: Pain HYDROcodone/ACETAMINOPHEN [Hydrocodon-Acetaminophen 5-325] 1 each PO Q6H PRN 5 Days #20 tablet PRN Reason: Pain Transmission Status: Received by [facility] Complete Home Medications List: Complete Home Medication List: Acetaminophen [Tylenol] 650 mg PO Q4H PRN 04/10/20 Donepezil HCl [Aricept] 10 mg PO HS 04/10/20 Dorzolamide HCl/Timolol Maleat [Cosopt Eye Drops] 1 drop EACHEYE BID 04/10/20 Fluticasone/Salmeterol [Advair Hfa 45-21 Mcg Inhaler] 2 puff INHALATION BID 04/10/20 Levothyroxine Sodium [Synthroid] 88 mcg PO DAILY 04/10/20 Loperamide HCl [Imodium A-D] 2 mg PO Q8H PRN 04/10/20 QUEtiapine FUMARATE [Seroquel] 25 mg PO [id number] 04/10/20 Thiamine HCl [B-1] 100 mg PO DAILY 04/10/20 HYDROcodone/ACETAMINOPHEN [Hydrocodon-Acetaminophen 5-325] 1 each PO Q6H PRN 5 Days #20 tablet 04/14/20 HYDROcodone/ACETAMINOPHEN [Hydrocodone-Acetamin 5-325 mg] 1 ea PO Q6H PRN 5 Days #20 04/14/20 Forms: Patient Portal Registration
[2020-04-14 13:27] VITALS: BP 141/72
[2020-04-14] MEDS ORDERED: WARFARIN SODIUM 3 MG TABLET PO SCH (17:00)
== END 2020-04-14 13:55 | DRG 482 ==
LOC: ER 05:41 → MS 06:01
PROVIDERS: ADMIT Family Medicine; ATTEND Family Medicine
DX: E03.9 Hypothyroidism, unspecified; W01.0XXA Fall on same level from slipping, tripping and stumbling without subsequent striking against object, initial encounter; S72.141A Displaced intertrochanteric fracture of right femur, initial encounter for closed fracture; Y92.121 Bathroom in nursing home as the place of occurrence of the external cause; I10 Essential (primary) hypertension; F03.90 Unspecified dementia, unspecified severity, without behavioral disturbance, psychotic disturbance, mood disturbance, and anxiety; J44.9 Chronic obstructive pulmonary disease, unspecified; M16.12 Unilateral primary osteoarthritis, left hip
CPT/HCPCS: 36415; 73502; 80048; 85025; 85027; 85610; 87081; 94640; 97116; 97140; 97161; 97165; 97530; 99284; 99285; J2405; U0001